=== PATIENT | female | born 1995 | race Caucasian/White ===

== ENCOUNTER 2016-09-12 21:40 | Emergency (ER) | payer OTHER ==
[2016-09-12] MEDS ORDERED: MICROGESTIN 211 EAC1 (22:01)
[2016-09-12 22:25] LABS: BASO % 0.3 % (0-2); EOS % 1.3 % (0-7); EOSINOPHIL ABSOLUTE COUNT 0.1 tho/cmm (0.0-0.7); HCT-HEMATOCRIT 41.2 % (34.0-49.0); HGB-HEMOGLOBIN 14.1 gm/dl (12.0-15.5); IMMATURE GRANULOCYTES ABSOLUTE 0.01 tho/cmm (0-0.03); IMMATURE GRANULOCYTES PERCENT 0.2 % (0-0.3); LYMPH ABSOLUTE COUNT 2.3 tho/cmm (0.8-4.5); MCH (MEAN CORPUSCULAR HGB) 30.1 pg (28.0-32.0); MCHC MEAN CORPUSCULAR HGB CONC 34.2 % (32.0-36.0); MEAN PLATELET VOLUME 9.8 cmc (9.4-12.4); MONO % 9.3 % (0-12); MONOCYTE ABSOLUTE COUNT 0.6 tho/cmm (0.0-1.2); NEUTROPHIL ABSOLUTE COUNT 3.2 tho/cmm (1.6-8.0); NEUTROPHIL-AUTOMATED 3.2 tho/cmm (1.6-8.0); NEUTROPHILS % 51.9 % (40-80); PLATELET COUNT 222 tho/cmm (150-450); RED BLOOD COUNT 4.68 mil/cmm (4.00-5.20); WHITE BLOOD COUNT 6.1 tho/cmm (4.0-10.0)
[2016-09-12 22:31] LABS: URINE BILIRUBIN NEGATIVE (NEG); URINE BLOOD NEGATIVE (NEG); URINE GLUCOSE (UA) NEGATIVE (NEG); URINE KETONE NEGATIVE (NEG); URINE LEUKOCYTE ESTERASE POSITIVE (NEG); URINE NITRITE NEGATIVE (NEG); URINE PH 6.5 (5.0-8.0); URINE PROTEIN NEGATIVE (NEG); URINE SPECIFIC GRAVITY 1.005 (1.003-1.030)
[2016-09-12 22:34] LABS: URINE APPEARANCE HAZY; URINE COLOR YELLOW
[2016-09-12 22:41] LABS: PREGNANCY-SERUM NEGATIVE (NEGATIVE)
[2016-09-12 22:42] LABS: URINE EPITHELIAL CELLS 0 /[HPF] (0-10); URINE RBC 0 /[HPF] (0-5)
[2016-09-12 22:45] LABS: ALBUMIN 3.8 g/dl (3.5-5.0); ALKALINE PHOSPHATASE 34 U/L (33-138); ALT/SGPT 25 U/L (12-78); ANION GAP 11 mmol/L (0-20); AST/SGOT 20 U/L (10-40); BILIRUBIN,TOTAL 0.3 mg/dl (0-1.5); BLOOD UREA NITROGEN 12 mg/dl (6-24); CALCIUM 8.8 mg/dl (8.5-10.5); CARBON DIOXIDE-VENOUS 26 mmol/L (22-32); CHLORIDE 107 mmol/l (96-110); CREATININE 0.79 mg/dl (0.50-1.10); GLUCOSE 89 mg/dL (70-110); LIPASE 160 U/L (73-393); POTASSIUM 3.8 mmol/L (3.7-5.1); SODIUM 140 mmol/L (135-145); eGFR VALUE FOR BLACK >90 mL/Min
[2016-09-13] MEDS ORDERED: NORCO 5/3251 TAB PO (01:29)
[2016-09-13] MEDS ORDERED: COLACE100 M1 PO (01:29)
[2016-09-13] MEDS ORDERED: ZOFRAN4 M2 PO (01:29)
== END 2016-09-13 01:57 ==
LOC: EDMED 21:40
PROVIDERS: Emergency Medicine
DX: R10.31 Right lower quadrant pain (principal); R11.0 Nausea
CPT/HCPCS: J2270; J2405; J7030; Q9967